=== PATIENT | male | born 1950 | race Caucasian/White ===

== ENCOUNTER → 2017-12-27 | Outpatient (CLI) | payer MEDICARE ==
--- NOTE | 2017-12-27 13:08 | RAD ---
EXAM: Bilateral lower extremity venous Doppler sonogram. HISTORY: Elevated d-dimer. TECHNIQUE: Pacheco scale and color Doppler sonographic evaluation of the bilateral lower extremity veins with spectral waveform analysis was performed. FINDINGS: There is normal color flow, normal compressibility and there are normal spectral waveforms in the common femoral, superficial femoral, popliteal, posterior tibial and greater saphenous veins. IMPRESSION: No Doppler evidence of lower extremity deep venous thrombosis. Electronically signed by: Heike Franco MD (12/27/2017 1:05 PM) [place] [id number]
== END | disposition home or self-care (01) ==
LOC: US 11:37
PROVIDERS: ATTEND Family Medicine
DX: M79.89 Other specified soft tissue disorders (principal)
CPT/HCPCS: 93970

== ENCOUNTER → 2019-08-14 | Outpatient (CLI) | payer MEDICARE ==
--- NOTE | 2019-08-14 14:46 | RAD ---
EXAM: Carotid Doppler sonogram. HISTORY: Hypertension. TECHNIQUE: Pacheco scale and color Doppler sonographic evaluation of the neck with spectral waveform analysis was performed and static images are submitted for review. FINDINGS: There is mild atherosclerotic plaque within the bilateral common carotid arteries and right greater than left internal carotid arteries. The peak systolic velocity within the right common carotid artery is 40 cm/sec. The peak systolic velocity within the right internal carotid artery is 56 cm/sec and the end diastolic velocity within the right internal carotid artery is 15 cm/sec. The right ICA/CCA ratio is 1.6. The peak systolic velocity within the left common carotid artery is 57 cm/sec. The peak systolic velocity within the left internal carotid artery is 72 cm/sec and the end diastolic velocity within the left internal carotid artery is 50 cm/sec. The left ICA/CCA ratio is 1.3. There is normal antegrade flow within both vertebral arteries. IMPRESSION: No Doppler evidence of hemodynamically significant stenosis within the carotid or vertebral arteries. PQRS Compliance Statement - Stenosis calculations for CT, MR and conventional angiography are based upon measurement of the distal ICA diameter in accordance with the NASCET methodology. Stenosis calculations for carotid ultrasound studies are derived from validated velocity criteria which are known to correlate with the NASCET methodology. Electronically signed by: Heike Franco MD (08/14/2019 2:43 PM) [place] [id number]
== END | disposition home or self-care (01) ==
LOC: US 13:48
PROVIDERS: ATTEND Family Medicine
DX: I65.23 Occlusion and stenosis of bilateral carotid arteries (principal); I10 Essential (primary) hypertension
CPT/HCPCS: 93880

== ENCOUNTER → 2021-01-14 | Outpatient (CLI) | payer MEDICARE ==
[~2021-01-14] MED LIST: IOHEXOL 240 MG/ML 50ML VIAL. ONE; IOHEXOL 240 MG/ML 50ML VIAL. PO ONE; IOHEXOL 300 MG/ML 75 ML VIAL. IV ONE
--- NOTE | 2021-01-14 14:03 | RAD ---
EXAM: CT ABDOMEN/PELVIS WITH CONTRAST. HISTORY: Abdominal pain and nausea. TECHNIQUE: Computed tomography of the abdomen and pelvis was performed after the intravenous administ ration of iodinated contrast. One or more of the following individualized dose reduction techniques w ere utilized for this examination: 1. Automated exposure control. 2. Adjustment of the mA and/or kV according to patient size. 3. Use of iterative reconstruction technique. COMPARISON: None. FINDINGS: Lung windows through the visualized portions of the bases reveal mild atelectasis. Bone win dows reveal no suspicious lesions. Calculi within the distal common duct measure up to 4 mm. The common duct is at the upper limits of n ormal caliber more proximally at 7 mm. There is no intrahepatic biliary dilatation. Gallstones are al so noted without pericholecystic inflammation. The pancreatic duct is not dilated. There is no peripa ncreatic inflammation. A benign-appearing cyst laterally in the left kidney measures 3.4 cm. The right kidney, spleen, and a drenal glands are unremarkable. There are no pathologically enlarged lymph nodes. The uterus is surgically absent. A small left inguinal hernia contains only fat. There is mild bladde r wall thickening. Sigmoid and left diverticulosis is mild. The appendix is not inflamed. There is no small bowel obstruction. IMPRESSION: 1. Choledocholithiasis just proximal to the ampulla. Consider ERCP for further management. 2. Cholelithiasis. 3. Small left inguinal hernia containing only fat. 4. Nonfocal bladder wall thickening suggests chronic outlet obstruction or inflammation. Correlate urinalysis. Electronically signed by: Brenda Bello MD (01/14/2021 2:00 PM) [id number]
== END ==
LOC: CT 11:38
PROVIDERS: ATTEND Internal Medicine Gastroenterology
DX: K40.30 Unilateral inguinal hernia, with obstruction, without gangrene, not specified as recurrent (principal); K80.20 Calculus of gallbladder without cholecystitis without obstruction; K80.50 Calculus of bile duct without cholangitis or cholecystitis without obstruction
CPT/HCPCS: 74177; Q9966; Q9967

== ENCOUNTER 2021-05-12 18:38 | Emergency (ER) | payer MEDICARE ==
[~2021-05-12] VITALS: Ht 175.3 cm; Wt 78.6 kg
[2021-05-12] MEDS ORDERED: MIDAZOLAM HCL PF 5 MG/5 ML VIAL. ONE (18:44)
--- NOTE | 2021-05-12 18:58 | PHYS DOC ---
Past History Past Medical History: Alcoholism, Anemia, Anxiety, Arthritis, CAD, CHF, Dementia, Hypertension Past Medical History History of previous alcohol withdrawal Alcohol Use: Heavy General Adult EDM: Chief Complaint: ALTERED MENTAL STATUS HPI: HPI: "He gordon of fell out of his chair.... and seem to be really altered... he was fighting he dust sampler s ..I called.. ( ) Patient is a 70 year old male who presents with acute mental status change. Hx of Falling out of chair. Pt. arrives sedated and confused. Unable to follow instructions. Pt. had received 2.5 mg Versed by [employer] Supervisor because pt. fighting them. Pt. appears to moving all ext. and combative to medical intervention. Pt. had addition 2.5 mg Versed to complete initial pt. CT of head. Pt. has hx prior episodes of alcohol withdrawal delirium's in the past. Patient did achieve abstinence for some time but has recently started drinking at least 2 beers per day. Patient did not drink alcohol yesterday or today reportedly. Patient does appear to be moving all extremities but is totally uncooperative with exam. Patient actively pulling out IVs and fighting medical intervention. Patient's allergy to Ativan reportedly now that he became sedated and developed hallucinations. Pt. got this medication on previous admission to [facility] for alcohol withdrawal. Patient does have a past history of TIAs, hypertension, alcohol abuse, skin cancer and some history of possible dementia. Patient normally follows with Dr. Charles Vale as a primary. No other changes in meds. Did have recently removal of skin cancers on his nose. Review of Systems: Review of Systems: Constitutional: Denies fever or chills Eyes: Denies change in visual acuity HENT: Denies nasal congestion or sore throat Respiratory: Denies cough or shortness of breath Cardiovascular: Denies chest pain or edema GI: Denies abdominal pain, nausea, vomiting, bloody stools or diarrhea : Denies dysuria Musculoskeletal: Denies back pain or joint pain Integument: Denies rash Neurologic: Denies headache, focal weakness or sensory changes Endocrine: Denies polyuria or polydipsia Lymphatic: Denies swollen glands Psychiatric: Denies depression or anxiety Family History: Family History: Noncontributory presentation Current Medications: Current Meds: Current Medications Medications (Trade) Dose Ordered Sig/Yassine Start Time Stop Time Status Last Admin Dose Admin Midazolam HCl (Versed) 5 mg STK-MED ONCE 05/12/21 18:44 05/12/21 18:44 DC Allergies: Allergies: Allergies Coded Allergies Type Severity Reaction Last Updated Verified No Known Drug Allergies 01/14/21 No Physical Exam: PE: Constitutional: in acute emotional distress, sedated appearance but very agitate d. HENT: Normocephalic, atraumatic, bilateral external ears normal, oropharynx moist, no oral exudates, nose Band-Aid covering previous skin cancer removal. Eyes: PERRLA, EOMI, conjunctiva normal, no discharge. [] Neck: Normal range of motion, no tenderness, supple, no stridor. No appreciable bruit Cardiovascular: Tachycardia heart rate regular rhythm, no murmur [] PMI to left Lungs & Thorax: Bilateral breath sounds equal apex auscultation with scattered wheezes, crackles and rhonchi. More rhonchi on right. Bilateral basilar crackles Abdomen: Bowel sounds decreased, soft, no tenderness, no masses, no pulsatile masses. [] Skin: Warm, dry, no erythema, no rash. Poor turgor. Senile keratosis . Scars from previous skin cancer removals. Back: No tenderness, no CVA tenderness. [] Extremities: No tenderness, no cyanosis, no clubbing, ROM intact, no edema. Arthritic changes. Moving all extremities. No cording appreciated Neurologic: Alert to name, appears to be moving all extremities,, appears to have distal sensory with noxious stimuli., no obvious focal deficits noted. [] Global confusion Psychologic: Affect anxious, judgement impaired , mood very agitated. Sedated. Uncooperative with any medical intervention. EKG: EKG: My interpretation EKG shows a sinus rhythm at 90 bpm. Does have an interventricular block. Does have prolonged LA interval at 254 ms abnormal EKG. Time of EKG is 2053 minutes [] Radiology/Procedures: Radiology/Procedures: [address] [address] IMAGING REPORT Signed PATIENT: SHELDON QUINONES FACCOUNT: [id number] : 1950 LOCATION: ER AGE: 70 SEX: M EXAM STATUS: REG ER ORD. PHYSICIAN: JADIEL SALGUERO MD REASON: mental status change PROCEDURE: PORTABLE CHEST 1V INDICATION: Reason: mental status change / Spl. Instructions: / History: COMPARISON: June 2016 FINDINGS: Single view of chest obtained. Cardiomediastinal silhouette is enlarged. Calcific atherosclerosis. Hypoexpanded examination of the lungs with mild interstitial opacities bilaterally. No gross osseous destructive lesion. IMPRESSION: * Hypoexpanded exam with mild interstitial opacities bilaterally. A portion this is likely secondary to hypoexpansion but mild pulmonary vascular congestion or interstitial infiltrate is not excluded given this prominence. Electronically signed by: Mil Shaffer MD (05/13/2021 1:08 AM) [id number] DICTATED AND SIGNED BY: MIL SHAFFER MD DATE: 05/13/21106 CC: JADIEL SALGUERO MD; ARACELI VALE MD ~[facility]0 [address] [place] [address] IMAGING REPORT Signed PATIENT: SHELDON QUINONES FACCOUNT: [id number] : 1950 LOCATION: ER AGE: 70 SEX: M EXAM STATUS: REG ER ORD. PHYSICIAN: JADIEL SALGUERO MD REASON: mental status change PROCEDURE: CT ANGIOGRAPHY HEAD AND NECK CT angiogram of the head and neck with contrast: Reason for examination: Mental status changes. Fell. Helical images were obtained through the head and neck with intravenous administration of 75 cc Omnipaque 350 using angiographic protocol. 3-D MIPS reconstruction was performed in sagittal and coronal planes and volume rendered images were obtained. Exposure: One or more of the following individualized dose reduction techniques were utilized for this examination: 1. Automated exposure control 2. Adjustment of the mA and/or kV according to patient size 3. Use of iterative r econstruction technique. The intracranial carotid arteries show some arteriosclerotic calcification in the cavernous carotid arteries bilaterally, right greater than left with moderate right carotid arterial stenosis. There is normal bifurcation into their respective anterior and middle cerebral arteries which showed no significant stenosis or occlusion. The intracranial vertebral arteries are patent. The right vertebral artery appears to terminate as the right posterior inferior cerebellar artery. The left intracranial vertebral artery shows calcification distally with moderate stenosis present near its termination to the basilar artery. The posterior cerebral and superior cerebellar arteries bilaterally are patent. No aneurysms or arteriovenous malformations are seen. Dural sinuses and cerebral veins appear to be patent The aortic arch shows arteriosclerotic vascular calcification without dissection. There appears be normal origin of the brachiocephalic artery, left common carotid artery and left subclavian arteries from the aortic arch. There is normal origin of the vertebral arteries bilaterally from their respective subclavian arteries with the right being smaller than the left but showing no stenosis or occlusion. The right carotid arterial system shows a moderate amount of calcified plaque at the carotid bulb and extending into the internal carotid artery with severe stenosis at the right carotid bulb. The left carotid arterial system shows calcified plaque at the carotid bulb and extending to the proximal left internal carotid arteries with mild to moderate stenosis. The lung apices show no acute abnormalities. No abnormality seen at the thyroid gland. The trachea and visualized portion of the esophagus show no acute abnormalities. Vocal cords are symmetric. Vallecula and piriform sinuses are symmetric. No abnormalities of seen at the parotid or submandibular glands. No abnormality seen at the epiglottis. The cervical spine shows degenerative changes especially at the C6-7 disc level with severe loss of disc height. No acute abnormalities evident in the cervical spine. IMPRESSION: Calcified plaque in the cavernous carotid arteries bilaterally, right greater than left, with moderate right cavernous carotid arterial stenosis present. Calcification in the distal left intracranial vertebral artery with moderate stenosis present near its confluence of the basilar artery. The right vertebral artery is smaller than left and appears to terminate posterior inferior cerebellar artery. Moderate calcified plaque at the right carotid bulb and extending into the internal carotid artery with severe stenosis at the right carotid bulb. Calcified plaque at the left carotid bulb and extending into the proximal left internal carotid artery with mild to moderate stenosis at the left internal carotid artery. FOR INTERNAL CODING PURPOSES Critical result: Findings discussed with Dr. Salguero at 05/12/2021 10:21 PM. RESULT CODE: (C) Electronically signed by: Nic Aleman MD (05/12/2021 10:26 PM) [facility] DICTATED AND SIGNED BY: NIC ALEMAN MD DATE: 05/12/212203 CC: JADIEL SALGUERO MD; ARACELI VALE MD ~[facility] 0 [][place] [address] IMAGING REPORT Signed PATIENT: SHELDON QUINONES FACCOUNT: [id number] : 1950 LOCATION: ER AGE: 70 SEX: M EXAM STATUS: PRE ER ORD. PHYSICIAN: JADIEL SALGUERO MD REASON: CODE STROKE, FALL, ALTERED LOC, BEST IMAGES OBTAINED PROCEDURE: CT CODE STROKE HEAD WO INDICATION: Reason: CODE STROKE, FALL, ALTERED LOC, BEST IMAGES OBTAINED / Spl. Instructions: / History: COMPARISON: MRI from June 2011 TECHNIQUE: Axial CT images obtained through the head without intravenous contrast. There is some limitation secondary to patient motion One or more of the following individualized dose reduction techniques were utilized for this examination: 1. Automated exposure control; 2. Adjustment of the mA and/or kV according to patient size; 3. Use of iterative reconstruction technique. FINDINGS: No intracranial hemorrhage. No significant midline shift. Ventricles and sulci are globally prominent. Scattered foci of low attenuation within the white matter. Calcific atherosclerosis. Basal ganglia calcification. Low-density at the right greater than left basal temporal region but this is a common location for artifact. IMPRESSION: * No acute intracranial hemorrhage. * Scattered regions of low attenuation within the white matter. Non-specific in nature but a common finding and frequently secondary to small vessel ischemic disease. If there is high concern for acute causes clinically MRI could better assess acuity. This appears increased from remote prior examination from 2010 * Prominence of ventricles and sulci which can be seen with age-related volume loss. Superimposed normal pressure hydrocephalus not excluded. Report called to the ER at 6:57 PM Electronically signed by: Mil Shaffer MD (05/12/2021 7:00 PM) [id number] DICTATED AND SIGNED BY: MIL SHAFFER MD DATE: 05/12/211848 CC: JADIEL SALGUERO MD; ARACELI VALE MD ~[facility]0 0 Heart Score: C/O Chest Pain: No HEART Score for Chest Pain: HEART Score for Chest Pain Response (Comments) Value History Moderately Suspicious 1 ECG Nonspecific Repolarizatio 1 Age > 65 2 Risk Factors 1 or 2 Risk Factors 1 Troponin < Normal Limit 0 Total 5 Risk Factors: Risk Factors: DM, Current or recent (<one month) smoker, HTN, HLP, family history of CAD, obesity. Risk Scores: Score 0 - 3: 2.5% MACE over next 6 weeks - Discharge Home Score 4 - 6: 20.3% MACE over next 6 weeks - Admit for Clinical Observation Score 7 - 10: 72.7% MACE over next 6 weeks - Early Invasive Strategies Course & Med Decision Making: Course & Med Decision Making Pertinent Labs and Imaging studies reviewed. (See chart for details) Pt. and family request pt. transfer to [facility]- states all his prior hospitalization have been there. Patient's and family insistent patient not get Ativan-because it caused him to be sedated and confused on a previous admission in [facility]. They did allow me to give patient 1 dose of Ativan so CT of head could be could be completed. Family did allow use of Versed for sedation. Discussed with patient's presentation test and treatment plan with [facility] transfer center-patient to be transferred to [facility] Dr. Gigi Stern accepting. Impression: 1. Acute mental status change. 2. Accelerated HTN 3. Anemia hemoglobin 11.9. 4. CHF BNP 2144 5. Urine drug screen negative with alcohol less than 10 6. Suspect alcohol withdrawal 7. History of dementia ?- past year increase problems with memory [] Dragon Disclaimer: Dragon Disclaimer: This electronic medical record was generated, in whole or in part, using a voice recognition dictation system. Departure Departure: Referrals: ARACELI VALE MD (PCP) [place] Disclaimer This chart was dictated in whole or in part using Voice Recognition software in a busy, high-work load, and often noisy Emergency Department environment. It may contain unintended and wholly unrecognized errors or omissions. Dragon Disclaimer This chart was dictated in whole or in part using Voice Recognition software in a busy, high-work load, and often noisy Emergency Department environment. It may contain unintended and wholly unrecognized errors or omissions. JADIEL SALGUERO MD May 12, 2021 18:58
--- NOTE | 2021-05-12 19:03 | RAD ---
INDICATION: Reason: CODE STROKE, FALL, ALTERED LOC, BEST IMAGES OBTAINED / Spl. Instructions: / Hist ory: COMPARISON: MRI from June 2011 TECHNIQUE: Axial CT images obtained through the head without intravenous contrast. There is some limitation seco ndary to patient motion One or more of the following individualized dose reduction techniques were utilized for this examinat ion: 1. Automated exposure control; 2. Adjustment of the mA and/or kV according to patient size; 3 . Use of iterative reconstruction technique. FINDINGS: No intracranial hemorrhage. No significant midline shift. Ventricles and sulci are globally prominent. Scattered foci of low attenuation within the white matter. Calcific atherosclerosis. Basal ganglia calcification. Low-density at the right greater than left basal temporal region but this is a common location for ar tifact. IMPRESSION: * No acute intracranial hemorrhage. * Scattered regions of low attenuation within the white matter. Non-specific in nature but a common finding and frequently secondary to small vessel ischemic disease. If there is high concern for acut e causes clinically MRI could better assess acuity. This appears increased from remote prior examinat ion from 2010 * Prominence of ventricles and sulci which can be seen with age-related volume loss. Superimposed no rmal pressure hydrocephalus not excluded. Report called to the ER at 6:57 PM Electronically signed by: Chente Shaffer MD (05/12/2021 7:00 PM) [id number]
[2021-05-12 19:24] LABS: BASO # 0.1 x10^3/uL (0.0-0.2); BASO % 1 % (0-3); EOS # 0.3 x10^3/uL (0.0-0.7); EOS % 3 % (0-3); HEMATOCRIT 35.7 % (39.0-53.0); HEMOGLOBIN 11.9 g/dL (13.0-17.5); LYMPH # 2.1 x10^3/uL (1.0-4.8); LYMPH % 20 % (24-48); MEAN CORPUSCULAR HEMOGLOBIN 32 pg (25-35); MEAN CORPUSCULAR HGB CONC 33 g/dL (31-37); MEAN CORPUSCULAR VOLUME 97 fL (79-100); MONO # 0.8 x10^3/uL (0.0-1.1); MONO % 7 % (0-9); NEUT # 7.6 x10^3uL (1.8-7.7); NEUT % 70 % (31-73); PLATELET COUNT 255 x10^3/uL (140-400); RED BLOOD COUNT 3.68 x10^6/uL (4.30-5.70); RED CELL DISTRIBUTION WIDTH 13.6 % (11.5-14.5); WHITE BLOOD COUNT 10.8 x10^3/uL (4.0-11.0)
[2021-05-12 19:32] LABS: CALCIUM 8.9 mg/dL (8.5-10.1); CREATININE 1.2 mg/dL (0.7-1.3); GFR 59.7; POTASSIUM 3.8 mmol/L (3.5-5.1)
[2021-05-12] MEDS ORDERED: ASPIRIN RECTAL 300 MG SUPP. PR ONE (19:45)
[2021-05-12] MEDS ORDERED: MIDAZOLAM HCL PF 5 MG/5 ML VIAL. IV ONE (19:45)
[2021-05-12] MEDS ORDERED: MIDAZOLAM HCL 50 MG in IV NORMAL SALINE 50ML 50 ML IV ONE (19:45)
[2021-05-12] MEDS ORDERED: IOHEXOL 350 MG/ML 100 ML VIAL. IV ONE (20:00)
[2021-05-12 20:26] LABS: BARBITURATES NEG (NEG); BENZODIAZEPINES POS (NEG); CANNABINOIDS NEG (NEG); COCAINE NEG (NEG); METHADONE NEG (NEG); OPIATES NEG (NEG); PHENCYCLIDINE NEG (NEG)
[2021-05-12 20:31] LABS: AMPHETAMINE/METHAMPHETAMINE NEG (NEG)
[2021-05-12 20:40] LABS: BACTERIA,URINE 0 /HPF (0-FEW); BILIRUBIN,URINE NEG (NEG); CLARITY,URINE CLEAR; COLOR,URINE YELLOW; GLUCOSE,URINE NEG (NEG); HYALINE CASTS, URINE OCC /HPF; NITRITE,URINE NEG (NEG); RBC,URINE 0 /HPF (0-2); SQUAMOUS EPITHELIAL CELL,UR OCC /LPF; UROBILINOGEN,URINE 0.2 mg/dL (0.2 mg/dL); WBC,URINE 0 /HPF (0-4)
[2021-05-12] MEDS ORDERED: FUROSEMIDE 40 MG/4 ML VIAL IVP ONE (21:15)
--- NOTE | 2021-05-12 22:28 | RAD ---
CT angiogram of the head and neck with contrast: Reason for examination: Mental status changes. Fell. Helical images were obtained through the head and neck with intravenous administration of 75 cc Omnip aque 350 using angiographic protocol. 3-D MIPS reconstruction was performed in sagittal and coronal p lanes and volume rendered images were obtained. Exposure: One or more of the following individualized dose reduction techniques were utilized for thi s examination: 1. Automated exposure control 2. Adjustment of the mA and/or kV according to patient size 3. Use of iterative reconstruction technique. The intracranial carotid arteries show some arteriosclerotic calcification in the cavernous carotid a rteries bilaterally, right greater than left with moderate right carotid arterial stenosis. There is normal bifurcation into their respective anterior and middle cerebral arteries which showed no signif icant stenosis or occlusion. The intracranial vertebral arteries are patent. The right vertebral antonia ry appears to terminate as the right posterior inferior cerebellar artery. The left intracranial vert ebral artery shows calcification distally with moderate stenosis present near its termination to the basilar artery. The posterior cerebral and superior cerebellar arteries bilaterally are patent. No an eurysms or arteriovenous malformations are seen. Dural sinuses and cerebral veins appear to be patent The aortic arch shows arteriosclerotic vascular calcification without dissection. There appears be no rmal origin of the brachiocephalic artery, left common carotid artery and left subclavian arteries fr om the aortic arch. There is normal origin of the vertebral arteries bilaterally from their respectiv e subclavian arteries with the right being smaller than the left but showing no stenosis or occlusion . The right carotid arterial system shows a moderate amount of calcified plaque at the carotid bulb a nd extending into the internal carotid artery with severe stenosis at the right carotid bulb. The lef t carotid arterial system shows calcified plaque at the carotid bulb and extending to the proximal le ft internal carotid arteries with mild to moderate stenosis. The lung apices show no acute abnormalities. No abnormality seen at the thyroid gland. The trachea an d visualized portion of the esophagus show no acute abnormalities. Vocal cords are symmetric. Vallecu la and piriform sinuses are symmetric. No abnormalities of seen at the parotid or submandibular gland s. No abnormality seen at the epiglottis. The cervical spine shows degenerative changes especially at the C6-7 disc level with severe loss of disc height. No acute abnormalities evident in the cervical spine. IMPRESSION: Calcified plaque in the cavernous carotid arteries bilaterally, right greater than left, with moderat e right cavernous carotid arterial stenosis present. Calcification in the distal left intracranial vertebral artery with moderate stenosis present near it s confluence of the basilar artery. The right vertebral artery is smaller than left and appears to terminate posterior inferior cerebella r artery. Moderate calcified plaque at the right carotid bulb and extending into the internal carotid artery wi th severe stenosis at the right carotid bulb. Calcified plaque at the left carotid bulb and extending into the proximal left internal carotid arter y with mild to moderate stenosis at the left internal carotid artery. FOR INTERNAL CODING PURPOSES Critical result: Findings discussed with Dr. Salguero at 05/12/2021 10:21 PM. RESULT CODE: (C) Electronically signed by: Aura Hercules MD (05/12/2021 10:26 PM) [place]
--- NOTE | 2021-05-13 01:11 | RAD ---
INDICATION: Reason: mental status change / Spl. Instructions: / History: COMPARISON: June 2016 FINDINGS: Single view of chest obtained. Cardiomediastinal silhouette is enlarged. Calcific atherosclerosis. Hypoexpanded examination of the lungs with mild interstitial opacities bilaterally. No gross osseous destructive lesion. IMPRESSION: * Hypoexpanded exam with mild interstitial opacities bilaterally. A portion this is likely secondary to hypoexpansion but mild pulmonary vascular congestion or interstitial infiltrate is not excluded g iven this prominence. Electronically signed by: Chente Shaffer MD (05/13/2021 1:08 AM) [id number]
[2021-05-13] MEDS ORDERED: ASPIRIN RECTAL 300 MG SUPP. ONE (01:46)
[2021-05-13] MEDS ORDERED: FUROSEMIDE 40 MG/4 ML VIAL ONE (01:46)
[2021-05-13] MEDS ORDERED: MIDAZOLAM 50mg/50ml NS KIT 50 ML IV ONE (02:06)
[2021-05-13] MEDS ORDERED: MIDAZOLAM HCL 50 MG in IV NORMAL SALINE 50ML 50 ML IV ONE (02:30)
--- NOTE | 2021-05-13 03:58 | EKG ---
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
[2021-05-13 05:00] VITALS: BP 162/91
== END 2021-05-13 05:10 | disposition short-term general hospital (02) ==
LOC: ER 18:38
DX: R41.82 Altered mental status, unspecified (principal); I11.0 Hypertensive heart disease with heart failure; I50.9 Heart failure, unspecified; D64.9 Anemia, unspecified; F03.90 Unspecified dementia, unspecified severity, without behavioral disturbance, psychotic disturbance, mood disturbance, and anxiety; F10.20 Alcohol dependence, uncomplicated; M19.90 Unspecified osteoarthritis, unspecified site; Z20.822 Contact with and (suspected) exposure to COVID-19; Z86.2 Personal history of diseases of the blood and blood-forming organs and certain disorders involving the immune mechanism; Y90.0 Blood alcohol level of less than 20 mg/100 ml; W07.XXXA Fall from chair, initial encounter; Y93.89 Activity, other specified; Y92.89 Other specified places as the place of occurrence of the external cause; Y99.8 Other external cause status
CPT/HCPCS: 36415; 51702; 70450; 70496; 70498; 71045; 80048; 80307; 81001; 82550; 83880; 84484; 85025; 85610; 85730; 93005; 96365; 96366; 96375; 96376; 99285; C9803; G0480; J1940; J2060; J2250; Q9967; U0003

== ENCOUNTER → 2021-12-05 | Outpatient (CLI) | payer MEDICARE ==
--- NOTE | 2021-12-05 15:29 | RAD ---
XR CHEST 2V 12/05/2021 Reason: RECHECK PNEUMONIA Comparison: Chest radiograph 05/12/2021 Technique: PA and lateral radiographs the chest Findings: There is relative lucency of the upper lung zones with interstitial thickening at the lower lung zone s. No focal airspace opacity. No pleural effusion or pneumothorax. The cardiomediastinal silhouette i s within normal limits. Flattening of the diaphragms. Impression: Chronic changes of emphysema. Electronically signed by: Sean Ibarra MD (12/05/2021 3:26 PM) [id number]
== END ==
LOC: RAD 12:26
PROVIDERS: ATTEND Family Medicine
DX: J43.9 Emphysema, unspecified (principal); Z87.01 Personal history of pneumonia (recurrent)
CPT/HCPCS: 71046

== ENCOUNTER → 2021-12-26 | Outpatient (CLI) | payer MEDICARE ==
--- NOTE | 2021-12-26 14:32 | RAD ---
XR KNEE_LT 1-2 VIEWS History: Reason: PAIN / Spl. Instructions: / History: Technique: 2 views left knee. Comparison: None. Findings: No dislocation. No acute fracture. Diffuse osteopenia. Mild left knee degenerative changes. Impression: 1. Mild left knee DJD. 2. Diffuse osteopenia. Electronically signed by: Aman Merchant DO (12/26/2021 2:30 PM) [id number]
== END ==
LOC: RAD 10:18
PROVIDERS: ATTEND Family Medicine
DX: M17.12 Unilateral primary osteoarthritis, left knee (principal); M85.88 Other specified disorders of bone density and structure, other site
CPT/HCPCS: 73560